=== PATIENT | male | born 1945 | race Caucasian/White ===

== ENCOUNTER 2016-08-27 07:06 | Day surgery (SDC) | payer MEDICARE ==
[~2016-08-27 07:06] MED LIST: ASAB PO; LISINOPRIL40 MG PO; LOP25 PO; MULTIVITAMI1 PO; NORV5 PO; PRAVACHOL40 MG PO; XALAT OPH
== END 2016-08-27 23:59 | disposition home or self-care (01) ==
LOC: SDC 07:06
PROVIDERS: Ophthalmology
PROC: 085J3ZZ Destruction of Right Lens, Percutaneous Approach (ICD-10-PCS; principal; 2016-08-27 08:15)
DX: H26.491 Other secondary cataract, right eye (principal); E78.5 Hyperlipidemia, unspecified; I10 Essential (primary) hypertension; M19.90 Unspecified osteoarthritis, unspecified site; Z87.891 Personal history of nicotine dependence; Z98.890 Other specified postprocedural states; Z98.49 Cataract extraction status, unspecified eye; Z79.899 Other long term (current) drug therapy; Z79.82 Long term (current) use of aspirin